=== PATIENT | female | born 1965 | race Caucasian/White ===

== ENCOUNTER 2019-01-20 11:18 | Outpatient (CLI) | payer BC ==
--- NOTE | 2019-01-20 20:05 | RAD ---
LEFT HAND THREE VIEWS: 01/20/19 No fracture or area of bony destruction was seen. There is probably the beginnings of some arthritic change in the first MCP joint. Overall, arthritic changes were not prominent. IMPRESSION: No acute findings. POS: HOME
== END 2019-01-20 11:19 | disposition home or self-care (01) ==
LOC: BURRAD 11:18
PROVIDERS: ATTEND Nurse Practitioner Family
DX: M79.642 Pain in left hand (principal)

== ENCOUNTER 2025-03-23 14:54 | Outpatient (CLI) | payer OTHER | END 2025-03-23 14:55 | disposition home or self-care (01) | LOC: BURRAD 14:54 | PROVIDERS: ATTEND Internal Medicine Gastroenterology | DX: R07.81 Pleurodynia (principal) ==